=== PATIENT | female | born 1955 | race Caucasian/White ===

== ENCOUNTER 2016-11-05 06:59 | Day surgery (SDC) | payer OTHER ==
[~2016-11-05 06:59] MED LIST: RINGERS SOLUTION,LACTATED 1,000 ML IV PRN
[2016-11-05] MEDS ORDERED: RINGERS SOLUTION,LACTATED 1,000 ML IV ONE (07:30)
[2016-11-05] MEDS ORDERED: RINGERS SOLUTION,LACTATED 1,000 ML IV PRN (08:57)
[2016-11-05 09:57] VITALS: BP 142/82
--- OUTSIDE RECORDS SUMMARY | 2016-11-05 11:21 | XMS REPORT | Continuity of Care Document ---
:1955 Demographics Phone Unavailable Preferred Language Unknown Marital Status Unknown Rastafari Affiliation Unknown Race Unknown Ethnic Group Unknown Author Organization [facility] ([facility]) Address [place] [address] Phone [phone] Care Team Providers Name Role Phone Unavailable Primary Care Provider Unavailable Source Comments This disclosure is being made pursuant to the Care Everywhere program, applicable federal and state laws, and may not contain all informaitonavailable regarding this patient.[facility] ([facility]) Active Allergies and Adverse Reactions Not on File Current Medications Not on file Active Problems Not on file Social History Tobacco Use Types Packs/Day Years Used Date Never Assessed Plan of Care Health Maintenance Due Date Last Done Comments HCV Screening 1955 Hepatitis B Vaccine (1 of 3 - Primary Series) 1955 Tdap Vaccine 1968 Lipid Disorder Screening 1975 MMR Vaccine 1975 Td Vaccine 1975 Cervical Cancer Screening 1987 Mammogram 1997 Colonoscopy 2007 Influenza Vaccine: Seasonal (#1) 01/07/2016 Results from Last 3 Months Not on file
--- NOTE | 2016-11-05 18:50 | OR ---
Operative Report - Dictated Report Narrative: OPERATIVE REPORT DATE OF OPERATION: 11/05/2016 PREOPERATIVE DIAGNOSIS: History of colon polyps POSTOPERATIVE DIAGNOSIS: Normal colonoscopy OPERATION: Colonoscopy SURGEON: Iggy Israel MD ANESTHESIA: SOSA Ervin CRNA INDICATIONS FOR PROCEDURE: The patient is a 61-year-old female referred by Dr. Rucker. The patient had a 0.5 cm tubular adenoma and a hyperplastic polyp removed in 2008. There is no family history of colon cancer. The patient is currently asymptomatic. FINDINGS: Very tortuous colon but normal exam to the cecum. NARRATIVE OF PROCEDURE: The patient was identified in the holding area, and prior to the administration of anesthetic, a multidisciplinary timeout was observed. With the patient in the left lateral position and after the administration of intravenous sedation, the perineum was inspected. There was no evidence of pilonidal disease or skin breakdown. The external appearance of the anus was normal. Sphincter tone was good. The flexible fiberoptic colonoscope was inserted into the rectum which was insufflated with air. The rectal mucosa and submucosal vascular pattern appeared normal, the prep was seen to be complete. The scope was advanced through the sigmoid colon, up the descending colon, and around the splenic flexure where the triangular haustral architecture of the transverse colon was seen. The scope was advanced across the transverse colon, around the hepatic flexure to the cecum, where the confluence of tenia and the ileocecal valve were identified. The mucosa at this level appeared normal. The scope was then slowly withdrawn in a circular fashion so that all aspects of colonic mucosa were inspected. The colon was very tortuous and course requiring standard reduction maneuvers and gentle external manual compression on the abdomen to reach the cecum. The haustral architecture appeared well preserved throughout with no evidence of external compression. The mucosa and submucosal vascular pattern appeared normal, specifically there was no gross evidence to suggest colitis or inflammatory bowel disease and no AV malformations were seen. No diverticular disease was demonstrated. No polyps were encountered. The scope was gradually withdrawn to the level of the rectum. As much insufflated air as possible was removed. The scope was withdrawn from the patient and the procedure terminated. The patient tolerated the anesthetic and procedure well without complication and was transferred back to the ambulatory surgery area awake and in stable condition. The patient remained stable throughout a period of postoperative observation. She denied abdominal discomfort, was able to tolerate by mouth intake, and was up without assistance. I shared the operative findings with the patient and she was given copies of the photographs which appear in the medical record. She was discharged home with instructions not to engage in hazardous activity today , but may resume normal activity tomorrow, and advance diet as tolerated. She is to continue those medications as listed in the history and physical exam. RECOMMENDATION: Colon surveillance in 10 years depending upon findings and symptoms Reviewed and electronically signed
== END 2016-11-05 07:00 | disposition home or self-care (01) ==
LOC: AMB 06:59
PROVIDERS: ATTEND Surgery
PROC: 0DJD8ZZ Inspection of Lower Intestinal Tract, Via Natural or Artificial Opening Endoscopic (ICD-10-PCS; principal; 2016-11-05 07:45)
DX: Z12.11 Encounter for screening for malignant neoplasm of colon (principal); E11.9 Type 2 diabetes mellitus without complications; F32.9 Major depressive disorder, single episode, unspecified; Z86.010 Personal history of colon polyps; Z87.891 Personal history of nicotine dependence; Z68.32 Body mass index [BMI] 32.0-32.9, adult

== ENCOUNTER 2019-12-09 04:55 | Observation (INO) ==
--- NOTE | 2019-12-09 05:06 | ERNOTE ---
Allergy Symptoms - ER Presenting Symptoms: other - Tongue swelling Time Seen by Provider: 12/09/19 04:59 Source: patient Exam Limitations: no limitations Immunizations: IMMUNIZATION HX Immunizations Up to Date Yes History of Influenza Vaccine No Hx Pneumococcal Vaccination No Allergies/Adverse Reactions: Allergies No Known Allergies Allergy (Verified 12/09/19 05:10) Home Medications: HOME MEDICATIONS Aspirin [Aspirin Enteric Coated] 325 mg PO DAILY 10/17/16 [Last Taken 11/11/17] Fluticasone Propionate [Flonase] 2 spray NS DAILY PRN 10/17/16 [Last Taken Unknown] Loratadine [Claritin] 10 mg PO DAILY 11/12/17 [Last Taken 11/11/17] atorvastatin 20 mg tablet 20 mg PO DAILY #90 tab 07/07/19 [Last Taken Unknown] bupropion HCl 300 mg 24 hr tablet, extended release 300 mg PO DAILY #90 tab 07/07/19 [Last Taken Unknown] glipizide 10 mg tablet, extended release 24 hr 20 mg PO DAILY #180 tab 07/07/19 [Last Taken Unknown] meloxicam 7.5 mg tablet 7.5 mg PO DAILY #90 tab 07/25/19 [Last Taken Unknown] pregabalin 150 mg capsule 150 mg PO BID #60 cap 07/29/19 [Last Taken Unknown] cholecalciferol (vitamin D3) 125 mcg (5,000 unit) capsule 500 mcg PO DAILY cap 10/07/19 [Last Taken Unknown] chromium picolinate 1,000 mcg tablet 1,000 mcg PO DAILY 10/07/19 [Last Taken Unknown] magnesium oxide 500 mg tablet 500 mg PO DAILY 10/07/19 [Last Taken Unknown] amlodipine 10 mg tablet 10 mg PO DAILY #90 tab 10/18/19 [Last Taken Unknown] lisinopril 40 mg tablet 40 mg PO DAILY #90 tab 10/24/19 [Last Taken Unknown] turmeric root extract 500 mg capsule 500 mg PO DAILY cap 11/08/19 [Last Taken Unknown] metformin 500 mg tablet,extended release 24 hr 1,000 mg PO BID #1 tab 11/09/19 [Last Taken Unknown] famotidine 40 mg tablet 40 mg PO DAILY #30 tab 11/14/19 [Last Taken Unknown] - History of Present Illness Narrative: Patient awoke with tongue swelling this morning. She denies any difficulty breathing. She does have some difficulty swallowing. She denies any rash or itching. She has taken lisinopril for a large number of years Timing: Present: constant Treatment SLEEP TECH:: by patient, benadryl Location swelling: Present: tongue Severity trouble swallowing/speaking: Present: mild Identified cause?: Yes Exposure: Present: MORGAN inhibitor Review of Systems - Review of Systems Constitutional: Absent: recent illness, fever, chills ENT: Present: See HPI Respiratory: Absent: shortness of breath, cough Cardiology: Absent: chest pain Gastrointestinal/Abdominal: Absent: nausea, vomiting Skin: Absent: rash, change in color Neurological: Absent: dizziness/light-headedness Endocrine: Absent: excessive sweating Medical History (Last Reviewed 12/09/19 @ 05:05 by Sanchez Garvey DO) Osteoarthritis of left knee (Acute) CVA (cerebral vascular accident) (Resolved) Onset Date: ~2012 Type 2 diabetes mellitus (Chronic) Carotid stenosis (Chronic) GERD (gastroesophageal reflux disease) (Chronic) Hyperlipidemia (Chronic) Hypertension (Chronic) Depression (Chronic) Onset Date: ~2013 Abnormal Pap smear of vagina Onset Date: ~2017 HSIL, +HRHPV Hernia Onset Date: Unknown left groin Joint pain Onset Date: Unknown Postmenopausal bleeding Onset Date: Unknown Calculus of kidney Onset Date: Unknown Surgical History: Surgical History (Last Reviewed 12/09/19 @ 05:05 by Sanchez Garvey DO) H/O arthroscopic knee surgery Onset Date: ~2015 left-Dr. Eugene H/O colonoscopy Onset Date: ~2016 Dr Israel-normal. Repeat in 10 years 2008-Dr Moy-tubular adenoma, hyperplastic polyp. Repeat in 3 years. H/O dilation and curettage Onset Date: ~2008 H/O excision of epidermal inclusion cyst Onset Date: ~2010 Dr Israel-chest H/O removal of cyst Onset Date: ~1999 LLQ History of carpal tunnel release Onset Date: ~2009 Dr Eugene-bilateral History of colposcopy Onset Date: ~10/2017 BONNIE III History of hernia repair Onset Date: ~1995 left inguinal History of hysteroscopy Onset Date: ~2008 Dr lozada-endometrial polyp History of incision and drainage Onset Date: ~2010 Dr Israel-epidermal inclusion cyst outside upper edge left breast History of tonsillectomy Onset Date: ~1967 uterine polypectomy Onset Date: ~2008 Family History: Family History (Last Reviewed 12/09/19 @ 05:05 by Sanchez Garvey DO) Father Pneumonia CVA (cerebral vascular accident) Hypertension Mother Non Hodgkin's lymphoma Diabetes Social History: (Last Reviewed 12/09/19 @ 05:05 by Sanchez Garvey DO) Social History: adopted: No foster care: No custodial: No Marital status: lives independently: No household members: spouse number of children: 3 caregiver/support person: No current occupational status: employed 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 Neck: Present: normal inspection, nontender, supple Respiratory: Present: no respiratory distress, no accessory muscle use Extremity Exam: Present: normal inspection, normal range of motion, no edema Neurological Exam: Present: alert, oriented, normal mood/affect Skin Exam: Present: normal color, warm/dry Progress - Vital Signs Patient's Vital Signs:: I have reviewed the patient's vital signs. - Progress/Reassessment Progress:: Unchanged Progress Note-Subjective: 12/09/19 07:45 Patient feels like she is not getting any better although not getting any worse. She has taken a few small sips of water but can only swallow very small amount at a time. - Transfer of Care Physician Sign Out: Sanchez Garvey Receiving Physician: Bubba Cope Expected Disposition: Admit Departure Clinical Impression: Angioedema due to angiotensin converting enzyme inhibitor (MORGAN-I) - Departure Disposition: Still a patient Condition: Stable Referrals: Maribell Coleman MD [Primary Care Provider] -
[2019-12-09] MEDS ORDERED: diphenhydrAMINE HCL 50 MG/ML VIAL IV ONE (05:11)
[2019-12-09] MEDS ORDERED: METHYLPREDNISOLONE SOD SUCC/PF 125 MG/2 ML VIAL IV ONE ×2 (05:11→14:54)
[2019-12-09] MEDS ORDERED: FAMOTIDINE 10 MG/ML VIAL IV ONE (05:11)
[2019-12-09] MEDS ORDERED: MELOXICAM 7.5 MG TABLET PO SCH (11:45)
[2019-12-09] MEDS ORDERED: buPROPion HCL 150 MG TAB.SR.24H PO SCH (11:45)
[2019-12-09] MEDS ORDERED: glipiZIDE 5 MG TAB.SR.24H PO SCH (11:45)
[2019-12-09] MEDS ORDERED: PREGABALIN 75 MG CAPSULE PO SCH (15:10)
--- NOTE | 2019-12-09 17:34 | HPDIS ---
Chief Complaint - Chief Complaint Date of Service: 12/09/19 Time of Service: 09:00 Chief Complaint: Tongue swelling History of Present Illness: Nury is a 64 yo female who presented to the [facility] ER with tongue and lower jaw swelling. She had difficulty swallowing but no problems breathing. She denies new medications or food. She is on lisinopril. She was given IV solumedrol and benadryl. She reports no prior episodes. She reports her blood pressure has been well controlled. She denies rash. Medical History (Last Reviewed 12/09/19 @ 05:10 by Venecia Lousi) Osteoarthritis of left knee (Acute) CVA (cerebral vascular accident) (Resolved) Onset Date: ~2012 Type 2 diabetes mellitus (Chronic) Carotid stenosis (Chronic) GERD (gastroesophageal reflux disease) (Chronic) Hyperlipidemia (Chronic) Hypertension (Chronic) Depression (Chronic) Onset Date: ~2013 Abnormal Pap smear of vagina Onset Date: ~2017 HSIL, +HRHPV Hernia Onset Date: Unknown left groin Joint pain Onset Date: Unknown Postmenopausal bleeding Onset Date: Unknown Calculus of kidney Onset Date: Unknown Surgical History: Surgical History (Last Reviewed 12/09/19 @ 08:48 by Kath Gage RN) H/O arthroscopic knee surgery Onset Date: ~2015 left-Dr. Eugene H/O colonoscopy Onset Date: ~2016 Dr Israel-normal. Repeat in 10 years 2008-Dr Moy-tubular adenoma, hyperplastic polyp. Repeat in 3 years. H/O dilation and curettage Onset Date: ~2008 H/O excision of epidermal inclusion cyst Onset Date: ~2010 Dr Israel-chest H/O removal of cyst Onset Date: ~1999 LLQ History of carpal tunnel release Onset Date: ~2009 Dr Eugene-bilateral History of colposcopy Onset Date: ~10/2017 BONNIE III History of hernia repair Onset Date: ~1995 left inguinal History of hysteroscopy Onset Date: ~2008 Dr lozada-endometrial polyp History of incision and drainage Onset Date: ~2010 Dr Israel-epidermal inclusion cyst outside upper edge left breast History of tonsillectomy Onset Date: ~1967 uterine polypectomy Onset Date: ~2008 Family History: Family History (Last Reviewed 12/09/19 @ 08:48 by Kath Gage, LIBBY) Father Hypertension CVA (cerebral vascular accident) Pneumonia Mother Diabetes Non Hodgkin's lymphoma Social History: (Last Reviewed 12/09/19 @ 08:49 by Kath Gage RN) Social History: adopted: No foster care: No residential: No Marital status: lives independently: No household members: spouse number of children: 3 caregiver/support person: No current occupational status: employed 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 Absent: Throat Swelling, Mouth Pain Respiratory: Absent: Cough, Shortness of Breath Cardiac: Absent: Chest Pain, Edema Abdominal: Absent: Nausea, Vomiting Genitourinary: Absent: Burning, Itching Musculoskeletal: Absent: Joint Pain, Back Pain Neurological: Absent: Headache, Anxiety Skin: Absent: Dryness, Lesions Immunizations: IMMUNIZATION HX Immunizations Up to Date Yes History of Influenza Vaccine No Hx Pneumococcal Vaccination No Allergies/Adverse Reactions: Allergies Allergy/AdvReac Type Severity Reaction Status Date / Time No Known Allergies Allergy Verified 12/09/19 08:49 Home Medications: HOME MEDICATIONS Aspirin [Aspirin Enteric Coated] 325 mg PO DAILY 10/17/16 [Last Taken 11/11/17] Fluticasone Propionate [Flonase] 2 spray NS DAILY PRN 10/17/16 [Last Taken Unknown] Loratadine [Claritin] 10 mg PO DAILY 11/12/17 [Last Taken 11/11/17] bupropion HCl 300 mg 24 hr tablet, extended release 300 mg PO DAILY #90 tab 07/07/19 [Last Taken Unknown] glipizide 10 mg tablet, extended release 24 hr 20 mg PO DAILY #180 tab 07/07/19 [Last Taken Unknown] meloxicam 7.5 mg tablet 7.5 mg PO DAILY #90 tab 07/25/19 [Last Taken Unknown] pregabalin 150 mg capsule 150 mg PO BID #60 cap 07/29/19 [Last Taken Unknown] cholecalciferol (vitamin D3) 125 mcg (5,000 unit) capsule 500 mcg PO DAILY cap 05/01/20 [Last Taken Unknown] chromium picolinate 1,000 mcg tablet 1,000 mcg PO DAILY 10/07/19 [Last Taken Unknown] magnesium oxide 500 mg tablet 500 mg PO DAILY 10/07/19 [Last Taken Unknown] amlodipine 10 mg tablet 10 mg PO DAILY #90 tab 10/18/19 [Last Taken Unknown] turmeric root extract 500 mg capsule 500 mg PO DAILY cap 11/08/19 [Last Taken Unknown] metformin 500 mg tablet,extended release 24 hr 1,000 mg PO BID #1 tab 11/09/19 [Last Taken Unknown] famotidine 40 mg tablet 40 mg PO DAILY #30 tab 11/14/19 [Last Taken Unknown] Atorvastatin Calcium [Lipitor] 20 mg PO HS 12/09/19 [Last Taken Unknown] predniSONE [Prednisone] 3 tab PO DAILY #18 tab 12/09/19 [Last Taken Unknown] Exam - Exam Vital Signs: Vital Signs - Last Taken Temp 36.7 C 12/09/19 13:38 Pulse 70 12/09/19 17:15 Resp 16 12/09/19 15:08 BP 134/79 12/09/19 14:21 Pulse Ox 95 12/09/19 15:08 Constitutional: Present: Alert, Oriented x3, Cooperative ENT Exam: Present: hearing grossly normal, other - tongue enlarged, submental area swollen Eye Exam: bilateral eye: normal inspection Respiratory: Present: lungs clear, normal breath sounds, no respiratory distress Cardiovascular/Chest: Present: regular rate, rhythm, no edema, no murmur Peripheral Pulses: radial (R): 2+, radial (L): 2+ Abdomen: Present: Normal bowel sounds, soft, nontender, nondistended Skin Exam: Present: normal color, warm/dry, no cyanosis Appearance: Present: appropriate appearance, appropriate insight Eye contact: Present: cooperative, good eye contact, other - speech slightly slurred Thoughts: Present: normal thought pattern, no apparent hallucination Assessment/Plan - Assessment/Plan (1) Angioedema due to angiotensin converting enzyme inhibitor (MORGAN-I) Assessment: Angioedema secondary to lisinopril. Will give IV solumedrol 60mg 6 hours after last dose. Will monitor her on the floor through the day. If swelling improves will plan to discharge to home later today or tomorrow. Will plan to discontinue lisinopril and she elects for a trial off this medication and will monitor her blood pressure on only amlodipine. Will admit to observation. Problem: Acute (1) Angioedema due to angiotensin converting enzyme inhibitor (MORGAN-I) Problem: Acute Date of Discharge:: 12/09/19 Hospital Course: Nury is a 64 yo female admitted for angioedema secondary to Lisinopril. She improved all day. Her tongue is significantly less swollen and she is eating fine prior to discharge. She will be continued on a prednisone t aper and may use oral benadryl as needed. She will follow up with her PCP in a week to discuss blood pressures. Procedures Performed: none Discharge Location: Home Disposition: Home self-care Condition: Good Discharge Activity: Activity as tolerated Discharge Diet: Low salt Referrals: Maribell Coleman MD [Primary Care Provider] - One Week Problem Oriented Discharge Instructions to Patient/Family: Angioedema, [id number] Prescriptions (Any new or edited meds): predniSONE [Prednisone] 3 tab PO DAILY #18 tab Transmission Status: Pending to [facility] #[id number] Complete Home Medications List: Complete Home Medication List: Aspirin [Aspirin Enteric Coated] 325 mg PO DAILY 10/17/16 Fluticasone Propionate [Flonase] 2 spray NS DAILY PRN 10/17/16 Loratadine [Claritin] 10 mg PO DAILY 11/12/17 bupropion HCl 300 mg 24 hr tablet, extended release 300 mg PO DAILY #90 tab 07/07/19 glipizide 10 mg tablet, extended release 24 hr 20 mg PO DAILY #180 tab 07/07/19 meloxicam 7.5 mg tablet 7.5 mg PO DAILY #90 tab 07/25/19 pregabalin 150 mg capsule 150 mg PO BID #60 cap 07/29/19 cholecalciferol (vitamin D3) 125 mcg (5,000 unit) capsule 500 mcg PO DAILY cap 10/07/19 chromium picolinate 1,000 mcg tablet 1,000 mcg PO DAILY 10/07/19 magnesium oxide 500 mg tablet 500 mg PO DAILY 10/07/19 amlodipine 10 mg tablet 10 mg PO DAILY #90 tab 10/18/19 turmeric root extract 500 mg capsule 500 mg PO DAILY cap 11/08/19 metformin 500 mg tablet,extended release 24 hr 1,000 mg PO BID #1 tab 11/09/19 famotidine 40 mg tablet 40 mg PO DAILY #30 tab 11/14/19 Atorvastatin Calcium [Lipitor] 20 mg PO HS 12/09/19 predniSONE [Prednisone] 3 tab PO DAILY #18 tab 12/09/19
[2019-12-09 18:01] VITALS: BP 127/75
== END 2019-12-09 17:55 | disposition home or self-care (01) ==
LOC: ER 04:55 → MS 04:55
PROVIDERS: ADMIT Family Medicine; ATTEND Family Medicine
CPT/HCPCS: 96374; 96375; 99283; 99284; G0378